=== PATIENT | male | born 1985 | race Two or more races ===

== ENCOUNTER 2020-07-01 20:30 | Emergency (ER) | payer SELFPAY ==
[~2020-07-01] VITALS: Ht 167.6 cm; Wt 95.2 kg
[2020-07-01] MEDS ORDERED: CLINDAMYCIN HC300 MG PO (21:03)
[2020-07-01] MEDS ORDERED: ULTRAM50 MG PO (21:03)
== END 2020-07-01 21:21 | disposition home or self-care (01) ==
LOC: ED 20:30
DX: K04.7 Periapical abscess without sinus (principal); F17.200 Nicotine dependence, unspecified, uncomplicated
CPT/HCPCS: 99282